=== PATIENT | female | born 1975 | race Hispanic/Latino ===

== ENCOUNTER 2022-08-16 16:03 | Observation (INO) | payer BC ==
[2022-08-16 17:15] LABS: #Basophils 0.1 thou/uL (0.0-0.2); #Eosinphils 0.1 thou/uL (0.0-0.7); #Lymphocytes 2.4 thou/uL (1.20-3.40); #Monocytes 0.7 thou/uL (0.11-0.59); %Basophils 0.7 % (0.0-1.0); %Eosinophils 1.2 % (0.0-10.0); %Neutrophils 65.1 % (42.0-75.0); Hemoglobin 5.3 g/dL (12.0-16.0); Mean Corpuscular HGB CONC 29.5 g/dL (32.0-36.0); Mean Corpuscular Hemoglobin 16.9 pg (27.0-31.0); Mean Corpuscular Volume 57.3 fl (78.0-98.0); Mean Platelet Volume 5.1 fL (7.4-10.4); Platelet Count 294 10x3/uL (130-400); RBC Distribution Width 19.8 % (11.5-14.5); Red Blood Cell (RBC) Count 3.15 mill/uL (4.20-5.40); White Blood Cell (WBC) Count 9.2 10x3/uL (4.8-10.8)
[2022-08-16 17:34] LABS: ALT (SGPT) 13 U/L (8-55); AST (SGOT) 20 U/L (5-34); Albumin 3.7 g/dL (3.5-5.0); Alkaline Phosphatase 86 U/L (40-110); Anion Gap 12 mmol/L (10-20); BUN (Urea Nitrogen) 11 mg/dL (7.0-18.7); Bilirubin, Total 0.3 mg/dL (0.2-1.2); Calc. Creatinine Clearance 0 mL/min (70-130); Calcium 8.5 mg/dL (7.8-10.44); Carbon Dioxide 25 mmol/L (22-29); Chloride 105 mmol/L (98-107); Estimated GFR 107; Globulin 3.4 g/dL (2.4-3.5); Glucose 138 mg/dL (70-105); Potassium 3.7 mmol/L (3.5-5.1); Protein, Total 7.1 g/dL (6.0-8.3); Sodium 138 mmol/L (136-145)
[2022-08-16 18:05] LABS: INR-International Normal Ratio 1.1; PTT 26.3 sec (22.9-36.1); Prothrombin Time 14.1 sec (12.0-14.7)
[2022-08-16] MEDS ORDERED: Calcium Carbonate 500 MG ChewTAB PO PRN (20:02)
[2022-08-16] MEDS ORDERED: Acetaminophen 325 MG TAB PO PRN (20:02)
[2022-08-16] MEDS ORDERED: Ondansetron ODT 4 MG TAB PO PRN (20:02)
[2022-08-16] MEDS ORDERED: Ondansetron PF 4 MG/2 ML Vial IVP PRN (20:02)
[2022-08-16 22:31] VITALS: BMI 44.7
[2022-08-16 23:16] LABS: Hemoglobin 6.8 g/dL (12.0-16.0)
[2022-08-17 05:28] LABS: Anion Gap 12 mmol/L (10-20); BUN (Urea Nitrogen) 9 mg/dL (7.0-18.7); Calc. Creatinine Clearance 200 mL/min (70-130); Calcium 8.6 mg/dL (7.8-10.44); Carbon Dioxide 22 mmol/L (22-29); Chloride 107 mmol/L (98-107); Estimated GFR 111; Glucose 135 mg/dL (70-105); Potassium 3.8 mmol/L (3.5-5.1); Sodium 137 mmol/L (136-145)
[2022-08-17 16:36] VITALS: BP 131/65; TEMP 98
[2022-08-17 18:03] LABS: Hemoglobin 9.1 g/dL (12.0-16.0); Platelet Count 319 10x3/uL (130-400)
== END 2022-08-17 17:25 | disposition home or self-care (01) ==
LOC: ERS 16:03 → 2SW 19:46
PROVIDERS: ADMIT Internal Medicine; ATTEND Internal Medicine
DX: D64.9 Anemia, unspecified (principal); R00.0 Tachycardia, unspecified; N92.0 Excessive and frequent menstruation with regular cycle; E66.9 Obesity, unspecified; Z68.41 Body mass index [BMI] 40.0-44.9, adult; Z88.8 Allergy status to other drugs, medicaments and biological substances
CPT/HCPCS: 36415; 36416; 36430; 71045; 76856; 80048; 80053; 82728; 83540; 83550; 83605; 85025; 85610; 85730; 86850; 86900; 86901; 93005; G0378; P9016